=== PATIENT | male | born 1965 | race Caucasian/White ===

== ENCOUNTER 2019-07-09 08:25 | Day surgery (SDC) | payer OTHER ==
[~2019-07-09] VITALS: Ht 188 cm; Wt 120.9 kg
[2019-07-09] MEDS ORDERED: LACTATED RINGERS 1,000 ML IV SCH (08:54)
[2019-07-09] MEDS ORDERED: IBUP-1623 PO (08:57)
[2019-07-09] MEDS ORDERED: ACET325T14 PO (08:57)
[2019-07-09] MEDS ORDERED: LIDOCAINE-MPF 1%, 2ML INFIL ONE (09:00)
[2019-07-09 09:41] VITALS: BP 143/85
[2019-07-09 10:01] LABS: ANION GAP 7 mmol/L (5-15); CALCIUM 9.3 mg/dL (8.5-10.1); CHLORIDE 101 mmol/L (98-107); CREATININE 0.87 mg/dL (0.7-1.3)
[2019-07-09 10:02] LABS: ALANINE AMINOTRANSFERASE 20 U/L (12-78); ALBUMIN 3.3 g/dL (3.4-5.0)
[2019-07-09 10:04] LABS: ALKALINE PHOSPHATASE 94 U/L (45-117); BILIRUBIN,TOTAL 0.6 mg/dL (0.2-1.0); TOTAL PROTEIN 8.1 g/dL (6.4-8.2)
[2019-07-09] MEDS ORDERED: MIDAZOLAM 1 MG/ML, 2ML ONE (10:12)
[2019-07-09] MEDS ORDERED: FENTANYL PF 250 MCG/5ML ONE (10:12)
[2019-07-09] MEDS ORDERED: ROCURONIUM 10MG/ML,5ML ONE (10:14)
[2019-07-09] MEDS ORDERED: PROPOFOL 10 MG/ML, 20ML ONE (10:14)
[2019-07-09] MEDS ORDERED: SUGAMMADEX 200 MG/2 ML IVPush ONE (10:14)
[2019-07-09] MEDS ORDERED: hydrALAzine 20 MG/ML, 1ML IV PRN (10:30)
[2019-07-09] MEDS ORDERED: ACETAMINOPHEN 325 MG TABLET PO PRN (10:30)
[2019-07-09] MEDS ORDERED: FENTANYL PF 100 MCG/2ML IV PRN (10:30)
[2019-07-09] MEDS ORDERED: LABETALOL 5MG/ML, 20ML IV PRN (10:30)
[2019-07-09] MEDS ORDERED: OXYcodone 5 MG/5 ML ORAL.SOL UDC PO PRN (10:30)
[2019-07-09] MEDS ORDERED: HYDROmorphone 2 MG/ML, 1ML IVPush PRN (10:30)
[2019-07-09] MEDS ORDERED: ONDANSETRON 2MG/ML, 2ML IV PRN (10:30)
[2019-07-09] MEDS ORDERED: MEPERIDINE/PF 25MG/ML,1ML IVPush PRN (10:30)
[2019-07-09] MEDS ORDERED: CEFAZOLIN 1,000 MG ONE (10:34)
[2019-07-09] MEDS ORDERED: ONDANSETRON 2MG/ML, 2ML ONE (11:37)
== END 2019-07-09 13:40 | disposition home or self-care (01) ==
LOC: OUT 08:25
PROVIDERS: ATTEND Orthopaedic Surgery
DX: T87.81 Dehiscence of amputation stump (principal); E11.42 Type 2 diabetes mellitus with diabetic polyneuropathy; Z79.84 Long term (current) use of oral hypoglycemic drugs; Z79.899 Other long term (current) drug therapy; Z88.5 Allergy status to narcotic agent; Y83.8 Other surgical procedures as the cause of abnormal reaction of the patient, or of later complication, without mention of misadventure at the time of the procedure
CPT/HCPCS: 13160; 80053; 82962; 87070; 87075; 87077; 87186; 87205; 93005; J0690; J2250; J2405; J2704; J3010; J7120

== ENCOUNTER 2019-09-03 12:22 | Day surgery (SDC) | payer OTHER ==
[~2019-09-03] VITALS: Ht 188 cm; Wt 123.8 kg
[~2019-09-03 12:22] MED LIST: ACET325T14 PO; IBUP-1623 PO
[2019-09-03] MEDS ORDERED: LACTATED RINGERS 1,000 ML IV SCH (12:54)
[2019-09-03] MEDS ORDERED: CHLORHEXIDINE 15 ML UDC MM ONE (13:00)
[2019-09-03] MEDS ORDERED: CEPH-368 PO (13:01)
[2019-09-03 13:06] VITALS: BP 156/91
[2019-09-03] MEDS ORDERED: MIDAZOLAM 1 MG/ML, 2ML ONE (14:24)
[2019-09-03] MEDS ORDERED: FENTANYL PF 100 MCG/2ML ONE (14:24)
[2019-09-03] MEDS ORDERED: ONDANSETRON 2MG/ML, 2ML ONE (14:44)
[2019-09-03] MEDS ORDERED: CEFAZOLIN 1,000 MG ONE (14:44)
[2019-09-03] MEDS ORDERED: SUCCINYLCHOLINE 20 MG/ML, 10ML ONE (14:44)
[2019-09-03] MEDS ORDERED: PROPOFOL 10 MG/ML, 100ML IV ONE (14:44)
[2019-09-03] MEDS ORDERED: ALBUTEROL SULFATE 2.5 MG/3 ML NPPB PRN (15:30)
[2019-09-03] MEDS ORDERED: LABETALOL 5MG/ML, 20ML IV PRN (15:30)
[2019-09-03] MEDS ORDERED: FENTANYL PF 100 MCG/2ML IV PRN (15:30)
[2019-09-03] MEDS ORDERED: DIAZEPAM 5 MG/ML, 2ML IVPush PRN (15:30)
[2019-09-03] MEDS ORDERED: MEPERIDINE/PF 25MG/0.5ML IVPush PRN (15:30)
[2019-09-03] MEDS ORDERED: OXYcodone 5 MG/5 ML ORAL.SOL UDC PO PRN (15:30)
[2019-09-03] MEDS ORDERED: HYDROmorphone 1 MG/ML, 1ML INJ IVPush PRN (15:30)
[2019-09-03] MEDS ORDERED: PROMETHAZINE 25 MG/ML, 1ML IV PRN (15:30)
[2019-09-03] MEDS ORDERED: ACETAMINOPHEN 325 MG TABLET PO PRN (15:30)
[2019-09-03] MEDS ORDERED: hydrALAzine 20 MG/ML, 1ML IV PRN (15:30)
== END 2019-09-03 16:30 | disposition home or self-care (01) ==
LOC: OUT 12:22
PROVIDERS: ATTEND Orthopaedic Surgery
DX: Z48.1 Encounter for planned postprocedural wound closure (principal); Z11.59 Encounter for screening for other viral diseases; E11.65 Type 2 diabetes mellitus with hyperglycemia; E11.40 Type 2 diabetes mellitus with diabetic neuropathy, unspecified; E66.01 Morbid (severe) obesity due to excess calories; Z79.1 Long term (current) use of non-steroidal anti-inflammatories (NSAID); Z79.84 Long term (current) use of oral hypoglycemic drugs; Z79.899 Other long term (current) drug therapy; Z87.891 Personal history of nicotine dependence; Z88.5 Allergy status to narcotic agent
CPT/HCPCS: 13160; 82962; 87070; 87075; 87077; 87176; 87186; 87205; J0330; J0690; J2250; J2405; J2704; J3010; J7120; U0001